=== PATIENT | female | born 1980 | race Two or more races ===

== ENCOUNTER 2024-05-06 16:15 | Emergency (ER) | payer OTHER ==
[~2024-05-06] VITALS: Ht 167.6 cm; Wt 97.1 kg
[2024-05-06] MEDS ORDERED: TOPROL XL25 M1 (16:46)
[2024-05-06] MEDS ORDERED: GABAPENTIN 100 MG CAPSULE PO STA (17:05)
== END 2024-05-06 19:44 | disposition home or self-care (01) ==
LOC: ER 16:17
DX: G51.8 Other disorders of facial nerve (principal); I10 Essential (primary) hypertension